=== PATIENT | male | born 1995 | race Two or more races ===

== ENCOUNTER 2017-02-19 20:19 | Emergency (ER) | payer OTHER ==
[~2017-02-19] VITALS: Ht 172.7 cm; Wt 54.4 kg
[2017-02-19 20:35] VITALS: BP 116/76
[2017-02-19] MEDS ORDERED: NKM (20:41)
[2017-02-19] MEDS ORDERED: Tetanus/Diptheria/Pertussis Vaccine 0.5ml Syr IM ONE (21:00)
[2017-02-19] MEDS ORDERED: Lidocaine 1% 10mg/ml/Epi 0.005mg/ml 30ml vial INJ ONE ×2 (21:32→21:45)
[2017-02-19 22:35] VITALS: BP 118/78
[2017-02-19] MEDS ORDERED: ACETAMINOPHEN-1 EAC1 ORAL (22:45)
[2017-02-19] MEDS ORDERED: KEFLEX500 MG ORAL (22:45)
[2017-02-19] MEDS ORDERED: Bacitracin Oint UD TOPIC ONE (22:53)
[2017-02-19 23:15] VITALS: BP 113/71
--- NOTE | 2017-02-20 01:05 | Emergency Room Report ---
History of Present Illness General Chief Complaint: Laceration Source: Patient Present Illness HPI 21-year-old male presents to ED STATUS post laceration to left middle finger. Accidentally cut his finger at work today. Tetanus is up-to-date. Denies any other injuries. Notes bleeding and pain to left middle finger. Sharp. 8/10. Nonradiating. No aggravating factors. Denies any other associated symptoms Allergies: Coded Allergies: No Known Allergies (Unverified , 02/19/17) Patient History Past Medical History: none Past Surgical History: none Pertinent Family History: none Social History: Denies: smoking, alcohol use, drug use Immunizations: UTD Reviewed Nursing Documentation: PMH: Agreed, PSxH: Agreed Nursing Documentation-PMH Past Medical History: No Stated History Review of Systems All Other Systems: negative except mentioned in HPI Physical Exam Vital Signs Date Time Temp Pulse Resp B/P (MAP) Pulse Ox O2 Delivery O2 Flow Rate FiO2 02/19/17 20:34 99.1 83 16 116/76 99 Room Air Sp02 EP Interpretation: reviewed, normal General Appearance: no apparent distress, alert, GCS 15, non-toxic Head: normocephalic Eyes: bilateral eye normal inspection, bilateral eye PERRL ENT: normal ENT inspection Neck: normal inspection Respiratory: normal inspection Cardiovascular #1: normal inspection Gastrointestinal: normal inspection Rectal: deferred Genitourinary: no CVA tenderness Musculoskeletal: normal inspection Neurologic: alert, oriented x3, responsive, motor strength/tone normal, sensory intact, speech normal Psychiatric: judgement/insight normal, memory normal, mood/affect normal, no suicidal/homicidal ideation Skin: laceration - 1cm laceration through distal tip, including nail of L middle finger Lymphatic: normal inspection Procedures Laceration/Wound Repair Laceration/Wound Repair : Consent: Verbal Wound Location: upper extremity - L middle finger Wound's Depth, Shape: linear, other - through nail Wound Explored: clean Betadine Prep?: Yes Anesthesia: Lidocaine w/ Epi Wound Debrided: minimal Wound Repaired With: sutures Suture Size/Type: 4:0, other - proline Layer Closure?: No Sterile Dressing Applied?: Yes Splint Applied?: No Sling Applied?: No Patient Tolerated: Well Complications: None Medical Decision Making Diagnostic Impression: Primary Impression: Laceration ER Course Hospital Course 21-year-old M presents to ED s/p laceration L middle finger using knife Clinical course Patient placed on stretcher. After initial history and physical, wound is irrigated. digital block provided with lidocaine. Laceration repaired w/o complication. Dressing applied. Diagnosis - laceration Stable and discharged to home with prescription for Keflex, tylenol #3. wound Care instructions given. Followup with PMD in 7-10 days for suture removal. Return to ED if any signs of infection develop Last Vital Signs Date Time Temp Pulse Resp B/P (MAP) Pulse Ox O2 Delivery O2 Flow Rate FiO2 02/19/17 23:15 99.1 81 18 113/71 99 Room Air Status: improved Disposition: HOME, SELF-CARE Condition: Stable Scripts Cephalexin* (KEFLEX*) 500 Mg Capsule 500 MG ORAL Q6H, #28 CAP 0 Refills Prov: NEGRITO VINSON M.D. 02/19/17 Acetaminophen With Codeine (T#3) (TYLENOL #3 TAB*) Y Tab 1 TAB ORAL Q8H Y for For Pain, #20 TAB Prov: NEGRITO VINSON M.D. 02/19/17 Departure Forms: Return to Work Return to Work Date: Feb 21, 2017 Patient Instructions: Laceration Care, Adult Additional Instructions: have sutures removed in 7-10 days. return to ED if any signs of infection develop NEGRITO VINSON M.D. Feb 20, 2017 01:05
== END 2017-02-19 23:15 | disposition home or self-care (01) ==
LOC: EMR 21:00
DX: S61.213A Laceration without foreign body of left middle finger without damage to nail, initial encounter (principal); W45.8XXA Other foreign body or object entering through skin, initial encounter; Y93.9 Activity, unspecified; Y92.9 Unspecified place or not applicable
CPT/HCPCS: 90471; 90715; 99283

== ENCOUNTER 2017-02-27 17:27 | Emergency (ER) | payer OTHER ==
[~2017-02-27] VITALS: Ht 170.2 cm; Wt 59.0 kg
[~2017-02-27 17:27] MED LIST: ACETAMINOPHEN-1 EAC1 ORAL; KEFLEX500 MG ORAL; NKM
[2017-02-27 17:42] VITALS: BP 114/72
--- NOTE | 2017-02-27 18:01 | Emergency Room Report ---
History of Present Illness General Chief Complaint: Wound Recheck/Suture Removal Source: Patient Present Illness HPI 21-year-old male presents to the emergency department for suture removal. Patient was seen approximately 8 days ago here in the emergency department where he had 5 sutures placed in the left middle finger. Patient denies pain denies discharge denies erythema. Patient is up-to-date with vaccinations. Denies numbness tingling or loss of sensation or gross motor movements of the extremities, incontinence of bowel or bladder. Denies CP, Palpitations, LOC, AMS , dizziness, Changes in Vision, Sensation, paresthesias, or a sudden severe headache. Allergies: Coded Allergies: No Known Allergies (Unverified , 02/19/17) Patient History Past Medical History: see triage record Past Surgical History: none Pertinent Family History: none Immunizations: UTD Reviewed Nursing Documentation: PMH: Agreed, PSxH: Agreed Nursing Documentation-PMH Past Medical History: No Stated History Review of Systems All Other Systems: negative except mentioned in HPI Physical Exam Vital Signs Date Time Temp Pulse Resp B/P (MAP) Pulse Ox O2 Delivery O2 Flow Rate FiO2 02/27/17 17:32 98.1 80 20 114/72 99 Room Air Sp02 EP Interpretation: reviewed, normal General Appearance: no apparent distress, alert, GCS 15, non-toxic Head: normocephalic, atraumatic Eyes: bilateral eye normal inspection, bilateral eye PERRL ENT: hearing grossly normal, normal voice Neck: full range of motion Respiratory: lungs clear, normal breath sounds, speaking full sentences Cardiovascular #1: regular rate, rhythm Musculoskeletal: back normal, gait/station normal, normal range of motion, non- tender Neurologic: alert, oriented x3, responsive, motor strength/tone normal, sensory intact, speech normal Psychiatric: judgement/insight normal, memory normal, mood/affect normal Skin: normal color, no rash, warm/dry, well hydrated, wd healing/no infection noted - distal left middle finger Medical Decision Making PA Attestation Dr. Bae is my supervising Physician whom patient management has been discussed with. Diagnostic Impression: Primary Impression: Encounter for removal of sutures ER Course 21-year-old male presents to the emergency department for suture removal. Patient was seen approximately 8 days ago here in the emergency department where he had 5 sutures placed in the left middle finger. Patient denies pain denies discharge denies erythema. Patient is up-to-date with vaccinations.Denies numbness tingling or loss of sensation or gross motor movements of the extremities, incontinence of bowel or bladder. Denies CP, Palpitations, LOC, AMS, dizziness, Changes in Vision, Sensation, paresthesias, or a sudden severe headache. Ddx considered but are not limited to laceration, tendon injury, cellulitis, dehiscence. Vital signs: are WNL, pt. is afebrile H&PE are most consistent with: healed laceration of the left middle finger ORDERS: none required at this time, the diagnosis is clinical ED INTERVENTIONS: - 5 Sutures removed. DISCHARGE: At this time pt. is stable for d/c to home. Will provide printed patient care instructions, and any necessary prescriptions. Care plan and follow up instructions have been discussed with the patient prior to discharge. Last Vital Signs Date Time Temp Pulse Resp B/P (MAP) Pulse Ox O2 Delivery O2 Flow Rate FiO2 02/27/17 17:32 98.1 80 20 114/72 99 Room Air Disposition: HOME, SELF-CARE Condition: Stable Scripts Bacitracin/Polymyxin B Sulfate (BACITRACIN-POLYMYXIN OINTMENT) 28.35 Gm Oint...g. 1 APPLIC TP BID, #28.3 GM Prov: Annamarie Jones 02/27/17 Patient Instructions: Suture Removal, Care After Additional Instructions: Take medications as directed. Follow up with a Primary Care Provider in 3-5 days, even if your symptoms have resolved. --Please review list of primary care clinics, if you do not already have a primary care provider Return sooner to ED if new symptoms occur, or current symptoms become worse. - Please note that this Emergency Department Report was dictated using [employer] technology software, occasionally this can lead to erroneous entry secondary to interpretation by the dictation equipment. Annamarie Jones Feb 27, 2017 18:01
[2017-02-27 18:30] VITALS: BP 114/72
[2017-02-27] MEDS ORDERED: BACITRACIN-P28.35 GM TP (18:30)
== END 2017-02-27 18:30 | disposition home or self-care (01) ==
LOC: EMR 18:26
DX: Z48.02 Encounter for removal of sutures (principal)
CPT/HCPCS: 99281

== ENCOUNTER 2017-05-26 14:17 | Emergency (ER) | payer OTHER ==
[~2017-05-26] VITALS: Ht 172.7 cm; Wt 56.7 kg
[~2017-05-26 14:17] MED LIST changes: +BACITRACIN-P28.35 GM TP
[2017-05-26] MEDS ORDERED: IBUPROFEN600 MG ORAL (15:41)
[2017-05-26 15:56] VITALS: BP 131/86
--- NOTE | 2017-05-26 18:59 | Emergency Room Report ---
History of Present Illness General Chief Complaint: Laceration Source: Patient Present Illness HPI The patient is a 21-year-old male presenting for right hand finger laceration which occurred at work today. He states that he was cleaning his knives which slipped. He noticed immediate pain to his right index finger as well as bleeding. Pain is an 8/10 dull ache and does not radiate. He denies any other symptoms Last tetanus shot within 10 years Allergies: Coded Allergies: No Known Allergies (Unverified , 02/19/17) Patient History Past Medical History: see triage record Pertinent Family History: none Reviewed Nursing Documentation: PMH: Agreed, PSxH: Agreed Nursing Documentation-PMH Past Medical History: No Stated History Review of Systems All Other Systems: negative except mentioned in HPI Physical Exam Vital Signs Date Time Temp Pulse Resp B/P (MAP) Pulse Ox O2 Delivery O2 Flow Rate FiO2 05/26/17 14:41 97.2 66 16 129/79 99 Room Air Sp02 EP Interpretation: reviewed, normal General Appearance: no apparent distress, alert, GCS 15, non-toxic Head: normocephalic, atraumatic Eyes: bilateral eye normal inspection, bilateral eye PERRL Musculoskeletal: back normal, gait/station normal, normal range of motion, tender - Distal R 2nd digit Neurologic: alert, oriented x3, responsive, motor strength/tone normal, sensory intact, speech normal Psychiatric: judgement/insight normal, memory normal, mood/affect normal, no suicidal/homicidal ideation Skin: laceration - 2cm linear, approximated laceration of distal R index finger palmar surface Lymphatic: no adenopathy Procedures Splinting Splinting : Consent: Verbal Location: R index Pre-Made Type: metal Splint: finger Pre-Proc Neuro Vasc Exam: normal Post-Proc Neuro Vasc Exam: normal Patient Tolerated: Well Complications: None Laceration/Wound Repair Laceration/Wound Repair : Consent: Verbal Wound Location: upper extremity Wound's Depth, Shape: superficial, linear Wound Length (cm): 2 Wound Explored: clean Irrigated w/ Saline (ccs): 100 Betadine Prep?: Yes Volume Anesthetic (ccs): 0 Wound Repaired With: Dermabond Sterile Dressing Applied?: No Splint Applied?: Yes Type of Splint Applied: metal finger Sling Applied?: No Patient Tolerated: Well Complications: None Medical Decision Making PA Attestation Dr. Tiwari is my supervising physician. Patient management was discussed with my supervising physician Diagnostic Impression: Primary Impression: Finger laceration Qualified Codes: S61.310A - Laceration without foreign body of right index finger with damage to nail, initial encounter ER Course The patient is a 21-year-old male presenting for right hand finger laceration which occurred at work today Ddx considered include but not limited to fracture, tendon/ligament injury, avulsion, nerve damage PE: NAD 2cm linear, approximated laceration of distal R index finger palmar surface. Full AROM intact. SILT No bleeding The wound was cleaned with normal saline and Betadine. Dermabond was used to approximate the wound using multiple layers. Was well approximated. Patient tolerated well. Metal finger splint is placed and the patient is discharged home. He will follow up with workers compensation. ER precautions given Last Vital Signs Date Time Temp Pulse Resp B/P (MAP) Pulse Ox O2 Delivery O2 Flow Rate FiO2 05/26/17 15:56 72 16 131/86 97 05/26/17 15:56 97.7 Room Air Status: improved Disposition: HOME, SELF-CARE Condition: Improved Scripts Ibuprofen* (MOTRIN*) 600 Mg Tablet 600 MG ORAL Q8H Y for For Pain, #30 TAB 0 Refills Prov: MELVIN GOODEN 05/26/17 Referrals: NOT CHOSEN [facility]/,REFERRING (PCP) Patient Instructions: Tissue Adhesive Wound Care Additional Instructions: I discussed my findings with the patient. All questions and concerns have been answered. Treatment and medication compliance have been addressed. I advised the patient that they need to follow up with physician in 3 days for wound check. MELVIN GOODEN May 26, 2017 18:59
== END 2017-05-26 15:56 | disposition home or self-care (01) ==
LOC: EMR 14:35
DX: S61.210A Laceration without foreign body of right index finger without damage to nail, initial encounter (principal); W26.0XXA Contact with knife, initial encounter; Y92.511 Restaurant or cafe as the place of occurrence of the external cause; Y99.0 Civilian activity done for income or pay
CPT/HCPCS: 99283

== ENCOUNTER 2018-09-03 16:33 | Emergency (ER) | payer OTHER ==
[~2018-09-03] VITALS: Ht 172.7 cm; Wt 59.0 kg
[~2018-09-03 16:33] MED LIST changes: +IBUPROFEN600 MG ORAL
--- NOTE | 2018-09-03 16:40 | NUR ---
ED Nurse Note: Pt came into the ER for staple removal on the head. 6 laine noted. Pt denies having pain. Pt is A + O x4. Ambulatory. Skin warm to touch.
[2018-09-03 16:41] VITALS: BP 110/82
--- NOTE | 2018-09-03 16:46 | Emergency Room Report ---
History of Present Illness General Chief Complaint: Wound Recheck/Suture Removal Source: Patient Present Illness HPI 23-year-old male presents to the emergency department complaining of needing removal of laine that he had placed in his scalp after sustaining a laceration approximately 10 days ago. Patient denies pain, tenderness, erythema , discharge, fevers or chills. Patient states he is up-to-date with his vaccinations he denies any medical complaints at this time. Allergies: Coded Allergies: No Known Allergies (Unverified , 02/19/17) Patient History Past Medical History: see triage record Past Surgical History: none Pertinent Family History: none Reviewed Nursing Documentation: PMH: Agreed; PSxH: Agreed Nursing Documentation-PMH Past Medical History: No Stated History Review of Systems All Other Systems: negative except mentioned in HPI Physical Exam Vital Signs Date Time Temp Pulse Resp B/P (MAP) Pulse Ox O2 Delivery O2 Flow Rate FiO2 09/03/18 16:37 98.8 100 19 119/80 96 Room Air Sp02 EP Interpretation: reviewed, normal General Appearance: no apparent distress, alert, GCS 15, non-toxic Head: normocephalic, atraumatic Eyes: bilateral eye normal inspection, bilateral eye PERRL ENT: hearing grossly normal, normal voice Neck: full range of motion Respiratory: chest non-tender, lungs clear, normal breath sounds, speaking full sentences Cardiovascular #1: regular rate, rhythm Musculoskeletal: back normal, gait/station normal, normal range of motion, non- tender Neurologic: alert, oriented x3, responsive, motor strength/tone normal, sensory intact, speech normal, grossly normal Psychiatric: judgement/insight normal Skin: normal color, no rash, warm/dry, well hydrated, wd healing/no infection noted - healed laceration of the scalp Medical Decision Making PA Attestation Dr. Bennett is my supervising Physician whom patient management has been discussed with. Diagnostic Impression: Primary Impression: Encounter for removal of sutures Additional Impression: Encounter for removal of laine ER Course 23-year-old male presents to the emergency department complaining of needing removal of laine that he had placed in his scalp after sustaining a laceration approximately 10 days ago. Patient denies pain, tenderness, erythema , discharge, fevers or chills. Patient states he is up-to-date with his vaccinations he denies any medical complaints at this time. Ddx considered but are not limited to laceration, tendon injury, cellulitis, dehiscence. Vital signs: are WNL, pt. is afebrile H&PE are most consistent with: healed laceration of the scalp ORDERS: none required at this time, the diagnosis is clinical ED INTERVENTIONS: - 6 Griffith removed. - some bleeding at the site of one of the laine. was controlled with direct pressure. DISCHARGE: At this time pt. is stable for d/c to home. Will provide printed patient care instructions, and any necessary prescriptions. Care plan and follow up instructions have been discussed with the patient prior to discharge. Last Vital Signs Date Time Temp Pulse Resp B/P (MAP) Pulse Ox O2 Delivery O2 Flow Rate FiO2 09/03/18 16:41 98.2 67 20 110/82 98 Room Air Disposition: HOME, SELF-CARE Condition: Stable Patient Instructions: Wound Closure Removal Additional Instructions: Follow up with a Primary Care Provider in 3-5 days, even if your symptoms have resolved. --Please review list of primary care clinics, if you do not already have a primary care provider Return sooner to ED if new symptoms occur, or current symptoms become worse. - Please note that this Emergency Department Report was dictated using [employer] technology software, occasionally this can lead to erroneous entry secondary to interpretation by the dictation equipment. Annamarie Jones Sep 03, 2018 16:46
--- NOTE | 2018-09-03 17:11 | NUR ---
ED Nurse Note: Dumont have been removed from pt's head. No signs of bleeding or inflammation noted. No complaints of pain.
[2018-09-03 17:17] VITALS: BP 111/83
--- NOTE | 2018-09-03 17:18 | NUR ---
ER DISCHARGE NOTE: Patient is cleared to be discharged per ERMD, pt is aox4, on room air, with stable vital signs. pt was given dc and prescription instructions, pt was able to verbalize understanding, pt id band removed without complications. pt is able to ambulate with steady gait. pt took all belongings.
== END 2018-09-03 17:18 | disposition home or self-care (01) ==
LOC: EMR 17:18
DX: Z48.02 Encounter for removal of sutures (principal)
CPT/HCPCS: 99281